=== PATIENT | male | born 1960 ===

== ENCOUNTER 2020-02-21 06:44 | Day surgery (SDC) | payer BC ==
[~2020-02-21 06:44] MED LIST: Lactated Ringers 1,000 ML IV SCH
[2020-02-21] MEDS ORDERED: Midazolam 1 MG/ML 2 ML SDV ONE (07:03)
[2020-02-21] MEDS ORDERED: fentaNYL 100 MCG/2 ML SDV ONE ×2 (07:03→09:20)
[2020-02-21] MEDS ORDERED: Propofol 200 MG/20 ML SDV ONE (07:03)
[2020-02-21] MEDS ORDERED: Bupivacaine 0.5% 30 ML SDV ONE (07:08)
[2020-02-21] MEDS ORDERED: Dexamethasone 4 MG/ML 5 ML MDV ONE (07:09)
--- NOTE | 2020-02-21 07:10 | PCM.PREANE ---
Preanesthetic Assessment - Anesthesia/Transfusion/Family Hx Anesthesia History: Prior Anesthesia Without Reaction Other Type of Anesthesia Reaction Comment: Denies any known problems, "little motion sickness in a boat" Family History of Anesthesia Reaction: No Transfusion History: No Prior Transfusion(s) Intubation History: Unknown - Review of Systems General: No Symptoms Pulmonary: No Symptoms Cardiovascular: No Symptoms Gastrointestinal: No Symptoms Neurological: No Symptoms Other: Reports: None - Physical Assessment Vital Signs: Last Vital Signs Temp 36.1 C 02/21/20 06:53 Pulse 75 02/21/20 06:53 Resp 16 02/21/20 06:53 BP 129/80 02/21/20 06:53 Pulse Ox 95 02/21/20 06:53 Height: 5 ft 6 in Weight: 72.121 kg ASA Class: 1 Mental Status: Alert & Oriented x3 Airway Class: Mallampati = 1 Dentition: Reports: Normal Dentition Thyro-Mental Finger Breadths: 3 Mouth Opening Finger Breadths: 3 ROM/Head Extension: Full Lungs: Clear to Auscultation, Normal Respiratory Effort Cardiovascular: Regular Rate, Regular Rhythm - Allergies Allergies/Adverse Reactions: Allergies Allergy/AdvReac Type Severity Reaction Status Date / Time No Known Allergies Allergy Verified 02/20/20 08:19 - Blood Blood Available: No - Anesthesia Plan Pre-Op Medication Ordered: None - Acknowledgements Anesthesia Type Planned: General Anesthesia (interscalene brachial plexus block for postoperative pain control) Pt an Appropriate Candidate for the Planned Anesthesia: Yes Alternatives and Risks of Anesthesia Discussed w Pt/Guardian: Yes Pt/Guardian Understands and Agrees with Anesthesia Plan: Yes PreAnesthesia Questionnaire HEENT History: Reports: None Cardiovascular History: Reports: None Respiratory History: Reports: None Gastrointestinal History: Reports: Bowel Obstruction Genitourinary History: Reports: None Musculoskeletal History: Reports: Fracture Other Musculoskeletal History: rt shoulder pain Neurological History: Reports: None Psychiatric History: Reports: None Endocrine/Metabolic History: Reports: None Hematologic History: Reports: None Immunologic History: Reports: None Oncologic (Cancer) History: Reports: None Dermatologic History: Reports: None - Past Surgical History Head Surgeries/Procedures: Reports: None HEENT Surgical History: Reports: None Cardiovascular Surgical History: Reports: None Respiratory Surgical History: Reports: None GI Surgical History: Reports: Colonoscopy, Hernia, Inguinal (bilateral), Other (See Below) Other GI Surgeries/Procedures: inguinal hernia x2, laparotomy for bowel obstru ction Male Surgical History: Reports: None Endocrine Surgical History: Reports: None Neurological Surgical History: Reports: None Musculoskeletal Surgical History: Reports: Other (See Below) Other Musculoskeletal Surgeries/Procedures:: ORIF fx left arm and later had hardware removal Oncologic Surgical History: Reports: None Dermatological Surgical History: Reports: Other (See Below) (removal of suspicious lesions from rt. and lt. lower leg) - SUBSTANCE USE Tobacco Use Within Last Twelve Months: No - HOME MEDS Home Medications: Home Meds Lidocaine [Lidocaine 5%] 1 patch TRDERM ASDIRECTED PRN 02/20/20 [History] traMADol HCl [Tramadol HCl] 50 mg PO ASDIRECTED PRN 02/20/20 [History] - CURRENT (IN HOUSE) MEDS Current Meds: Current Medications Lactated Ringer's (Ringers, Lactated) 1,000 mls @ 100 mls/hr IV ASDIRECTED VA[facility] Cefazolin Sodium/Dextrose 2 gm (/ Premix) 50 mls @ 100 mls/hr IV ONCALL [facility]
[2020-02-21] MEDS ORDERED: Rocuronium Bromide 50 MG/5 ML Syringe ONE (07:11)
[2020-02-21] MEDS ORDERED: Ketorolac 30 MG/ML SDV ONE (07:11)
[2020-02-21] MEDS ORDERED: Lidocaine 2% 5 ML SDV ONE (07:11)
[2020-02-21] MEDS ORDERED: Ondansetron 4 MG/2 ML SDV ONE (07:11)
[2020-02-21] MEDS ORDERED: Glycopyrrolate 0.2 MG/ML SDV ONE (07:11)
[2020-02-21] MEDS ORDERED: Sodium Chloride 0.9% 20 ML ONE (07:13)
[2020-02-21] MEDS ORDERED: ceFAZolin 1 GM Vial ONE (07:13)
--- NOTE | 2020-02-21 07:16 | PCM.PREANE ---
Preanesthetic Assessment - Anesthesia/Transfusion/Family Hx Anesthesia History: Prior Anesthesia Without Reaction Other Type of Anesthesia Reaction Comment: Denies any known problems, "little motion sickness in a boat" Transfusion History: No Prior Transfusion(s) - Physical Assessment Vital Signs: Last Vital Signs Temp 36.1 C 02/21/20 06:53 Pulse 75 02/21/20 06:53 Resp 16 02/21/20 06:53 BP 129/80 02/21/20 06:53 Pulse Ox 95 02/21/20 06:53 Height: 5 ft 6 in Weight: 72.121 kg - Allergies Allergies/Adverse Reactions: Allergies Allergy/AdvReac Type Severity Reaction Status Date / Time No Known Allergies Allergy Verified 02/20/20 08:19 PreAnesthesia Questionnaire HEENT History: Reports: None Cardiovascular History: Reports: None Respiratory History: Reports: None Gastrointestinal History: Reports: Bowel Obstruction Genitourinary History: Reports: None Musculoskeletal History: Reports: Fracture Other Musculoskeletal History: rt shoulder pain Neurological History: Reports: None Psychiatric History: Reports: None Endocrine/Metabolic History: Reports: None Hematologic History: Reports: None Immunologic History: Reports: None Oncologic (Cancer) History: Reports: None Dermatologic History: Reports: None - Past Surgical History Head Surgeries/Procedures: Reports: None HEENT Surgical History: Reports: None Cardiovascular Surgical History: Reports: None Respiratory Surgical History: Reports: None GI Surgical History: Reports: Hernia, Inguinal, Other (See Below) Other GI Surgeries/Procedures: inguinal hernia x2, laparotomy for bowel ob struction Male Surgical History: Reports: None Endocrine Surgical History: Reports: None Neurological Surgical History: Reports: None Musculoskeletal Surgical History: Reports: Other (See Below) Other Musculoskeletal Surgeries/Procedures:: ORIF fx left arm and later had h ardware removal Oncologic Surgical History: Reports: None Dermatological Surgical History: Reports: None - SUBSTANCE USE Tobacco Use Within Last Twelve Months: No - HOME MEDS Home Medications: Home Meds Lidocaine [Lidocaine 5%] 1 patch TRDERM ASDIRECTED PRN 02/20/20 [History] traMADol HCl [Tramadol HCl] 50 mg PO ASDIRECTED PRN 02/20/20 [History] - CURRENT (IN HOUSE) MEDS Current Meds: Current Medications Lactated Ringer's (Ringers, Lactated) 1,000 mls @ 100 mls/hr IV ASDIRECTED [facility] Cefazolin Sodium/Dextrose 2 gm (/ Premix) 50 mls @ 100 mls/hr IV ONCALL [facility]
[2020-02-21] MEDS ORDERED: fentaNYL 100 MCG/2 ML SDV IVPUSH PRN (07:28)
[2020-02-21] MEDS ORDERED: Acetaminophen 1,000 MG in Premix Bag 1 BAG IV ONE (07:28)
[2020-02-21] MEDS ORDERED: ceFAZolin 2 GM in Premix Bag 1 BAG IV SCH (08:00)
[2020-02-21] MEDS ORDERED: Bupivacaine 25%/EPINEPHrine/PF 30 ML ONE (09:47)
[2020-02-21] MEDS ORDERED: Bupivacaine 0.25% 10 ML SDV ONE (09:47)
--- NOTE | 2020-02-21 10:31 | PCM.POSTAN ---
POST ANESTHESIA ASSESSMENT - MENTAL STATUS Mental Status: Alert, Oriented - VITAL SIGNS Vital Signs: Last Vital Signs Temp 36.2 C 02/21/20 10:12 Pulse 95 02/21/20 10:27 Resp 14 02/21/20 10:27 BP 119/77 02/21/20 10:27 Pulse Ox 93 L 02/21/20 10:27 - RESPIRATORY Respiratory Status: Respiratory Rate WNL, Airway Patent, O2 Saturation Stable - CARDIOVASCULAR CV Status: Pulse Rate WNL, Blood Pressure Stable - GASTROINTESTINAL GI Status: No Symptoms - PAIN Pain Score: 0 - POST OP HYDRATION Hydration Status: Adequate & Stable - OBSERVATIONS Free Text/Narrative:: No anesthesia problems
--- NOTE | 2020-02-21 11:36 | PCM48HPAN ---
Post Anesthesia Note - EVALUATION WITHIN 48HRS OF ANESTHETIC Vital Signs in Normal Range: Yes Patient Participated in Evaluation: Yes Respiratory Function Stable: Yes Airway Patent: Yes Cardiovascular Function Stable: Yes Hydration Status Stable: Yes Pain Control Satisfactory: Yes Nausea and Vomiting Control Satisfactory: Yes Mental Status Recovered: Yes Vital Signs: Last Vital Signs Temp 36.2 C 02/21/20 10:35 Pulse 83 02/21/20 11:05 Resp 14 02/21/20 11:05 BP 117/70 02/21/20 11:05 Pulse Ox 96 02/21/20 11:05 - COMMENTS/OBSERVATIONS Free Text/Narrative:: No anesthesia problems
--- NOTE | 2020-02-21 16:00 | OR ---
SURGEON: Jorge Nolasco DATE OF PROCEDURE: 02/21/2020 PREOPERATIVE DIAGNOSIS: Right rotator cuff tear. POSTOPERATIVE DIAGNOSES: 1. Right rotator cuff tear. 2. Degenerative labral tear. 3. Subacromial bursitis. PROCEDURES: 1. Right diagnostic shoulder arthroscopy. 2. Mini open right rotator cuff repair. 3. Partial subacromial bursectomy. 4. Partial labral debridement. PRIMARY SURGEON: Jorge Nolasco DO TOOL CLERK: DAVID Velasco ROLE OF TOOL CLERK: Nurse practitioner, DAVID Velasco, played an essential role in assisting in this case, helping to position the patient, retract structures as needed, as well as suturing and cutting sutures as indicated. Her presence improved patient's safety and decreased operative time. ANESTHESIA: General endotracheal intubation plus regional interscalene block. FLUID: Lactated Ringer's solution. ESTIMATED BLOOD LOSS: 50 mL. COMPLICATIONS: None. SPECIMEN: None. DISCHARGE DISPOSITION: Stable to PACU. HISTORY AND INDICATIONS FOR THE PROCEDURE: The patient was seen preoperatively in the clinic. He had undergone therapy. He had been suffering with right shoulder pain for 4 months. 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 He is right-hand dominant. Preoperative imaging confirmed the above-mentioned diagnosis. Risks and goals of the procedure were explained to the patient. Informed consent was obtained. DETAILS OF PROCEDURE: The patient was seen preoperatively by myself and the Anesthesia staff in the preoperative holding area where the operative site was marked. He was brought to the operative suite by the Anesthesia staff where interscalene block was performed, general endotracheal intubation was performed. The patient was then positioned in a beach chair position with the head slightly flexed and rotated to the left. All extremities were found to be well padded. The right upper extremity was then prepped and draped in a sterile manner. Time-out was called identifying the correct patient, the correct procedure, the correct site, and that antibiotics had been given within appropriate period of time. The posterior portal was made first with a trocar and then the joint was insufflated. This showed some degenerative labral tearing anterior to posterior, from about 10 o'clock to 2 o'clock. This was debrided with a shaver and then ablated with the ablation unit. It was found to be stable after probing with a probe. The biceps tendon looked good. The middle glenohumeral ligament appeared to be normal. Subscapularis tendon appeared to be normal. The ablation and shaving were done through an anterior portal after placing a spinal needle and a knife in a trocar. I then continued onto the superior aspect of the joint to the subacromial space. I then repositioned my trocar in subacromial space and then made a lateral portal. I then performed some shaving and ablation. There was significant bursitis present and so I took a while to debride this with a shaver and ablation unit. After this had been accomplished, we then removed our instruments from the subacromial space. I then re-prepped and then made a saber incision about a centimeter distal to the edge of the acromion extending anterior lateral at the corner of the acromion. Bleeding was controlled with Bovie electrocautery. I used Weider's for retraction first. I then used [place] and pickups to go expose the deltoid fascia. I then went through the raphe between the middle and anterior deltoid and then spread this with Gelpi retractor. I then used [place]'s for retraction superiorly and inferiorly. Part of the bursa was removed. This allowed exposure of the tear, which was a semi-circular tear. I then debrided the footprint with a curette and then placed two anchors and then ran my sutures into the rotator cuff with a scorpion. So there were four strands per anchor. After I had accomplished this, I had tried to use one of the strands for margin convergence, however, was not quite satisfied, so I placed another anchor between those two anchors and then used that to perform small amount marginal convergence and then tack it down to the anchor. I felt that this gave good fixation. I then placed two distal row anchors and then ran my strands through there and then tightened those up, and then after having accomplished good fixation, I ran them through a random range of range of motion and felt that this was good fixation. After that had been accomplished, we then copiously irrigated with Betadine infused irrigation and then ran the irrigation through the portals as well. I then closed the raphe of the deltoid with running 0 Stratafix suture in a watertight manner to protect the joint. I then placed another 0 Stratafix subcutaneously and then closed the skin with santosh. I closed my anterior and posterior portal with santosh as well. After this had been accomplished, we applied Betadine-soaked Adaptic, 4 x 4s, and Medipore tape and then placed him into a sling. The patient was allowed to awaken from general endotracheal intubation and taken to the PACU in stable condition. [id number] / MODL /[id number]
== END 2020-02-21 11:48 | disposition home or self-care (01) ==
LOC: MW.SDS 06:44
PROVIDERS: ATTEND Orthopaedic Surgery
PROC: 0LM20ZZ Reattachment of Left Shoulder Tendon, Open Approach (ICD-10-PCS; principal; 2020-02-21)
DX: M75.101 Unspecified rotator cuff tear or rupture of right shoulder, not specified as traumatic (principal); S43.431A Superior glenoid labrum lesion of right shoulder, initial encounter; E78.00 Pure hypercholesterolemia, unspecified; M75.51 Bursitis of right shoulder; Z79.899 Other long term (current) drug therapy; Z98.890 Other specified postprocedural states
CPT/HCPCS: 23412; 29823; C1713; C1776; J0690; J1100; J1885; J2001; J2250; J2405; J2704; J3010; J3490; J7120; 01630